=== PATIENT | female | born 1975 ===

== ENCOUNTER 2018-07-19 02:43 | Emergency (ER) | payer SELFPAY ==
[2018-07-19] MEDS ORDERED: Tdap Vaccine 0.5 ml Vial (10-64 yrs) IM ONE ×2 (03:29→04:05)
--- NOTE | 2018-07-19 03:35 | C.PDOC ---
History Of Present Illness 43 y/o female brought in by ambulance for evaluation of Left orbit contusion/head injury sustained earlier this morning. Patient admits to drinking alcohol tonight and reports she tripped and fell. At present time, patient is unable to recall all details of the incident due to level of intoxication. She offers no active complaints. Patient denies LOC, syncope, severe headache, visual changes, focal deficits, denies neck pain, CP, nausea, vomiting, denies any other active complaints. Pt appears AAO#3 at present time, strong alcohol odor. As per EMS, pt arrived from home, ambulance called by family. Time Seen by Provider: 07/19/18 02:56 Chief Complaint (Nursing): Eye Problem History Per: Patient History/Exam Limitations: intoxication Onset/Duration Of Symptoms: Mins Current Symptoms Are (Timing): Still Present Injury To Eye?: Yes Associated Symptoms: Swelling Past Medical History Reviewed: Historical Data, Nursing Documentation, Vital Signs Vital Signs: Last Vital Signs Temp 97.6 F 07/19/18 02:51 Pulse 69 07/19/18 02:51 Resp 14 07/19/18 02:51 BP 115/71 07/19/18 02:51 Pulse Ox 98 07/19/18 02:51 - Medical History PMH: No Chronic Diseases Surgical History: No Surg Hx Family History: States: No Known Family Hx - Social History Hx Tobacco Use: No Hx Alcohol Use: Yes Hx Substance Use: Yes - Immunization History Hx Tetanus Toxoid Vaccination: No Hx Pneumococcal Vaccination: No Review Of Systems Constitutional: Negative for: Fever Eyes: Positive for: Other (swelling and bruising beneath left eye). Negative for: Pain, Vision Change Cardiovascular: Negative for: Palpitations Respiratory: Negative for: Shortness of Breath Gastrointestinal: Negative for: Nausea, Vomiting, Diarrhea Skin: Positive for: Bruising (near left eye) Neurological: Negative for: Weakness, Numbness, Change in Speech, Headache, Dizziness Physical Exam - Physical Exam Appears: Well, Non-toxic, No Acute Distress Skin: Warm, Dry, Ecchymosis (Left infraorbital) Head: Atraumatic, Normacephalic, No Laceration Eye(s): bilateral: PERRL, EOMI (no pain or limitation on extraocular movement B/L), left: Other (mild Left infraorbital edema/ecchymoses with small middle puncture wound. NO palpable deformity.) Ear(s): Bilateral: Normal Nose: No Deformity, No Tenderness Oral Mucosa: Moist, No Drooling, No Trismus, Other (strong alcohol odor) Tongue: No Laceration Lips: No Laceration Throat: No Drooling Neck: Normal ROM, Trachea Midline, No Midline Cervical Tenderness, No Parace rvical Tenderness, No Step Off Deformity, Supple Chest: Symmetrical, No Deformity, No Tenderness Cardiovascular: Rhythm Regular, No Murmur Respiratory: No Decreased Breath Sounds, No Accessory Muscle Use, No Stridor, No Wheezing Gastrointestinal/Abdominal: Soft, No Tenderness, No Distention, No Guarding Back: No Vertebral Tenderness Extremity: Normal ROM, No Tenderness, No Deformity, No Swelling Extremity: Bilateral: Atraumatic Pulses: Left Radial: Normal, Right Radial: Normal Neurological/Psych: Oriented x3, Normal Speech (slightly slurred due to alcohol intoxication), Normal Cognition, Normal Motor, Normal Sensation, Normal Reflexes ED Course And Treatment - Laboratory Results Urine POC: Negative O2 Sat by Pulse Oximetry: 98 (on RA) Pulse Ox Interpretation: Normal - CT Scan/US CT orbits Other Rad Studies (CT/US): Read By Radiologist, Radiology Report Reviewed CT/US Interpretation: Name:CARMELO CHAN Exam Date:Jul 19, 2018 3:52:12 AM EST. Modality Type:CT\SR. Description:CT - FACIAL BONES. Gender:F Laterality:Not applicable. :79 Referring Physician:KELLY GEIGER. CT scan of the facial bones. Indication: Left eye pain. Technique: Axial CT scan images without contrast. Reformatted coronal and sagittal images. Findings: Left preseptal periorbital soft tissue contusion. Normal bilateral orbital contents. Normal bilateral medial and inferior orbital anand. Normal bilateral maxillary bones. Normal bilateral maxillary sinuses. Normal bilateral frontozygomatic arches. Normal bilateral zygomatic temporal arches. Normal nasal bones. Normal anterior nasal spine. Normal soft tissue structures. There is no demonstrated fracture. Normal visualized frontal, ethmoidal and sphenoid sinuses. Impression: No CT evidence of acute bone pathology. Left preseptal periorbital soft tissue contusion. Progress Note: Tetanus booster given in the ED. CT Orbits/Facials taken, showing left periorbital soft tissue contusion. On re-evaluation, pt is AAO#3, not in any apparent distress. AMbulatory in ED with stable gait. Head: AT/NC. Left eye: mild infraorbital ecchymoses with mild tenderness. NO palpable deformity, no blurry vision, no pain or limitation on extraocular movement. neck: Supple, (-) midline tenderness. Lungs: CTA B/L, BS equal B/L. Abd: benign. Neurologicaly intact. CT orbit review - mild soft tissue swelling, no acute pathlogy noted. Pt has clinical findings c/w hea dinjuryt, Left eye contusion, alcohol intoxication. family member at bedside, advised on course of ds,ref. to F/u with PMD, Opht in 2-3 days for re-eval. pt is stable for discharge now. Disposition Counseled Patient/Family Regarding: Studies Performed, Diagnosis, Need For Followup - Disposition Referrals: [facility] [Outside] Rafael Santo MD [Staff Provider] - Disposition: HOME/ ROUTINE Disposition Time: 04:29 Condition: STABLE Additional Instructions: Observe 48 hours for any sign of head injury- intractable headache, visual changes, vomiting, lethargy or any other new changes-return to ED immediately for re-evaluation. Ice to contusion area on face Tylenol as need for pain Follow up with PMD, Opht in 2-3 days for re-evaluation. Observe 48 horas para detectar cualquier signo de lesin en la kristi (dolor de kristi intratable, cambios visuales, vmitos, letargo o cualquier otro cambio nuevo), regrese a la татьяна de urgencias inmediatamente para elisa nueva evaluacin. Hielo al angela de contusin en la veronica. Tylenol nimco necesidad de dolor Ella un seguimiento con PMD, Opht en 2-3 bunch para la reevaluacin. Instructions: Minor Head Injury, Eye Contusion (DC), Alcohol Poisoning (DC) Forms: [employer] (Syriac) Print Language: BULGARIAN - Clinical Impression Clinical Impression: Head injury, Orbital contusion, Alcohol intoxication - PA / SOCIAL MEDIA ANALYST / Resident Statement /DO has reviewed & agrees with the documentation as recorded. - Scribe Statement The provider has reviewed the documentation as recorded by the Scribe (Heather Teresa) All medical record entries made by the Scribe were at my direction and personally dictated by me. I have reviewed the chart and agree that the record accurately reflects my personal performance of the history, physical exam, medical decision making, and the department course for this patient. I have also personally directed, reviewed, and agree with the discharge instructions and disposition.
[2018-07-19 04:54] VITALS: BP 118/76; PULSE 72; RESP 16; TEMP 98
--- NOTE | 2018-07-19 10:45 | CT ---
Date of service: 07/19/2018 PROCEDURE: CT MAXILLOFACIAL BONES WITHOUT CONTRAST HISTORY: Left eye COMPARISON: None available. TECHNIQUE: Contiguous axial CT images of the maxillofacial bones were obtained. Coronal and sagittal reformats were generated. Radiation dose: Total exam DLP = 760.99 mGy-cm. This CT exam was performed using one or more of the following dose reduction techniques: Automated exposure control, adjustment of the mA and/or kV according to patient size, and/or use of iterative reconstruction technique. FINDINGS: NASAL BONES: Unremarkable. ORBITS: Of bony orbits intact without evidence of acute fractures. Globes intact and lenses appropriately located. There are no retrobulbar hemorrhages or collections. PARANASAL SINUSES/ MASTOIDS: Clear. MAXILLA: Moderate left premaxillary soft tissue swelling seen extending superiorly into the left infraorbital region and posteriorly over the left zygomatic arch. There is mild left periorbital soft tissue swelling. Moderate soft tissue swelling seen in the left mid-superior frontal region with minimal left supraorbital soft tissue swelling.. MANDIBLE/ TEMPOROMANDIBULAR JOINTS: Unremarkable. SKULL BASE: Unremarkable. TEMPORAL BONES: Middle ears and mastoid grossly unremarkable. OTHER FINDINGS: None. IMPRESSION: Moderate left-sided facial soft tissue swelling as well as left mid to superior frontal scalp swelling. No evidence of acute maxillofacial skeletal fractures.
[2018-07-22 22:25] VITALS: O2SAT 98
== END 2018-07-19 04:54 | disposition home or self-care (01) ==
LOC: MERGE 02:43 → C.ER 02:43
DX: S09.90XA Unspecified injury of head, initial encounter (principal); S05.12XA Contusion of eyeball and orbital tissues, left eye, initial encounter; W01.0XXA Fall on same level from slipping, tripping and stumbling without subsequent striking against object, initial encounter; F10.129 Alcohol abuse with intoxication, unspecified; Z23 Encounter for immunization

== ENCOUNTER 2018-11-26 09:30 | Outpatient (CLI) | payer OTHER | END 2018-11-26 09:31 | disposition home or self-care (01) | LOC: C.MAMMO 09:30 | DX: Z12.31 Encounter for screening mammogram for malignant neoplasm of breast (principal) ==

== ENCOUNTER 2018-12-09 10:19 | Outpatient (CLI) | payer OTHER | END 2018-12-09 10:20 | disposition home or self-care (01) | LOC: C.MAMMO 10:19 | DX: R92.8 Other abnormal and inconclusive findings on diagnostic imaging of breast (principal) ==